=== PATIENT | male | born 1955 | race Caucasian/White ===

== ENCOUNTER 2022-05-02 18:58 | Inpatient (IN) | payer MEDICARE, OTHER ==
[~2022-05-02] VITALS: Ht 177.8 cm; Wt 93.0 kg
[2022-05-02 19:10] LABS: Calcium, Ionized (POC) 1.16 mmol/L (1.10-1.46); Chloride (POC) 107 mmol/L (98-108); Glucose (ISTAT POC) 162 mg/dL (70-99); Hemoglobin (POC) 16.7 g/dL (13.5-17.5); Sodium (POC) 141 mmol/L (135-148); Total CO2 (POC) 23 mmol/L (21-32)
[2022-05-02 19:13] LABS: pH Blood Venous 7.26 (7.34-7.37)
[2022-05-02 19:14] LABS: Base Excess Venous -3.9 mmol/L; Bicarbonate Venous 20.5 mmol/L (24.0-30.0); PCO2 Venous 52.2 mmHg (38-42)
[2022-05-02 19:33] LABS: Source, Urine Straight Cath
[2022-05-02 19:34] LABS: BASOPHILS ABSOLUTE AUTO 0.04 K/mm3 (0.00-0.23); BASOPHILS PERCENT AUTO 0 % (0-2); EOSINOPHILS PERCENT AUTO 0 % (0-6); Hematocrit 48.1 % (37.0-53.0); Hemoglobin 16.1 g/dL (13.5-17.5); IMMATURE GRAN ABSOLUTE AUTO 0.09 K/mm3 (0.00-0.10); IMMATURE GRAN PERCENT AUTO 1 % (0-1); LYMPHOCYTES ABSOLUTE AUTO 0.73 K/mm3 (0.84-5.20); LYMPHOCYTES PERCENT AUTO 5 % (21-46); MONOCYTES ABSOLUTE AUTO 0.86 K/mm3 (0.16-1.47); MONOCYTES PERCENT AUTO 5 % (4-13); Mean Corpuscular HGB 31.6 pg (26.0-34.0); Mean Corpuscular HGB Conc 33.5 g/dL (31.5-36.5); Mean Corpuscular Volume 95 fL (80-100); Mean Platelet Volume 9.2 fL (9.1-12.4); NEUTROPHILS ABSOLUTE AUTO 14.56 K/mm3 (1.96-9.15); NEUTROPHILS PERCENT AUTO 89 % (41-73); Platelet Count 266 K/mm3 (150-400); RDW Coefficient Variation 13.2 % (11.7-14.2); RDW Standard Deviation 45.9 fL (35.1-46.3); Red Blood Cell Count 5.09 M/mm3 (4.30-5.90); White Blood Cell Count 16.28 K/mm3 (4.00-11.30)
[2022-05-02 19:47] LABS: Appearance, Urine Clear (Clear); Bilirubin, Urine Neg (Neg); Blood, Urine Neg (Neg); Color, Urine Yellow (P-Yellow); Glucose Qualitative, Urine Neg (Neg); Ketones, Urine Neg (Neg); Leukocyte Esterase, Urine Neg (Neg); Nitrite, Urine Neg (Neg); Protein, Urine Neg (Neg); Specific Gravity, Urine 1.015 (1.003-1.022); Urobilinogen, Urine NORM (Normal)
[2022-05-02 19:56] LABS: Ethanol (Alcohol), Blood, Med <3 mg/dL; Magnesium, Blood 2.2 mg/dL (1.6-2.4)
[2022-05-02 19:57] LABS: Alanine Aminotransfer (ALT/SGP 27 U/L (12-78); Albumin, Blood 3.6 g/dL (3.4-5.0); Albumin/Globulin Ratio 0.9 (0.8-1.8); Alk Phos 74 U/L (50-136); Anion Gap 7 mmol/L (6-16); Aspartate Aminotrans (AST/SGOT 19 U/L (12-37); Bilirubin, Total 0.7 mg/dL (0.1-1.0); Blood Urea Nitrogen 19 mg/dL (8-24); Bun/Creatinine Ratio 17.9 (12.0-20.0); CO2, Blood 24 mmol/L (21-32); Calcium, Blood 8.7 mg/dL (8.5-10.1); Chloride, Blood 109 mmol/L (98-108); Creatinine, Blood 1.06 mg/dL (0.60-1.20); Globulin, Blood 3.8 g/dL (2.2-4.0); Glomerular Filtration Rate 54 (60-); Glucose, Blood 163 mg/dL (70-99); Potassium, Blood 3.9 mmol/L (3.5-5.5); Sodium, Blood 140 mmol/L (136-145); Total Protein, Blood 7.4 g/dL (6.4-8.2)
[2022-05-02 20:00] LABS: U Amphetamine Screen Not Detected; U Barbituate Screen Not Detected; U Benzodiazapine Screen Not Detected; U Buprenorphine Screen Not Detected; U Cannabinoids Screen Not Detected; U Cocaine Screen Not Detected; U Methadone Screen Not Detected; U Methamphetamine Screen Not Detected; U Opiates Screen Not Detected; U Oxycodone Screen Not Detected; U Phencyclidine Screen Not Detected; U Propoxyphene Screen Not Detected
[2022-05-02 20:22] LABS: International Normalized Ratio 1.08; Prothrombin Time Results 11.3 Sec (9.7-11.5)
[2022-05-02 21:30] LABS: Bicarbonate Venous 17.8 mmol/L (24.0-30.0); PCO2 Venous 49.7 mmHg (38-42); pH Blood Venous 7.21 (7.34-7.37)
[2022-05-02 21:31] LABS: Base Excess Venous -8.2 mmol/L
[2022-05-02 22:06] LABS: Influenza A, PCR NEGATIVE (NEGATIVE); Influenza B, PCR NEGATIVE (NEGATIVE); Resp Syncytial Virus, PCR NEGATIVE (NEGATIVE); SARS-Cov-2 (COVID-19) PCR, MMC NEGATIVE (NEGATIVE)
--- NOTE | 2022-05-02 22:30 | NUR ---
ARRIVAL TO ICU PT BROUGHT TO UNIT AT THIS TIME. HE IS INTUBATED, 7.0/26CM WITH VENT SETTINGS AC/VC 16/500/7/90%. HE IS RECEIVING PROPOFOL 40MCG/KG/MIN AND PRECEDEX 0.4MCG/KG/HR. PUPILS 2MM AND MINIMALLY RESPONSIVE TO LIGHT. UPPER EXTREMITIES MINIMALLY RESPONSIVE TO NAILBED PRESSURE WITH INTERNAL ROTATION. TOES POINT UP AND SLIGHTLY FAN. COUGH/GAG INTACT. LUNGS CLEAR THROUGHOUT, MORE DIMINISHED ON R SIDE. THICK DURHAM/YELLOW ETT SECRETIONS. NSR ON MONITOR WITH RATE 80S-90S. BP STABLE WITH MAP >65. STRONG PULSES. OGT CONNECTED TO LOW INT SUCTION WITH YELLOW BILE DRAINAGE. BOWEL TONES HYPOACTIVE. STILES PATENT AND DRAINING PALE YELLOW/CLEAR URINE TO GRAVITY. CORE TEMP 98.4. SKIN COOL TO TOUCH, FINGERS/TOES HAVE DUSKY APPEARANCE. SEE SHIFT ASSESSMENT.
[2022-05-02 22:47] LABS: Anti-Xa UFH, PHA Monitoring <0.10 IU/mL
[2022-05-03 00:32] LABS: Source, Urine Foley catheter
[2022-05-03 00:38] LABS: Bilirubin, Urine Neg (Neg); Blood, Urine 4+ (Neg); Glucose Qualitative, Urine 3+ (Neg); Ketones, Urine Neg (Neg); Leukocyte Esterase, Urine Neg (Neg); Nitrite, Urine Neg (Neg); Protein, Urine 2+ (Neg); Specific Gravity, Urine 1.015 (1.003-1.022); Urobilinogen, Urine NORM (Normal)
[2022-05-03 01:25] LABS: BASOPHILS ABSOLUTE AUTO 0.05 K/mm3 (0.00-0.23); BASOPHILS PERCENT AUTO 0 % (0-2); EOSINOPHILS ABSOLUTE AUTO 0.01 K/mm3 (0.00-0.68); EOSINOPHILS PERCENT AUTO 0 % (0-6); Hematocrit 41.2 % (37.0-53.0); Hemoglobin 13.6 g/dL (13.5-17.5); IMMATURE GRAN ABSOLUTE AUTO 0.08 K/mm3 (0.00-0.10); IMMATURE GRAN PERCENT AUTO 1 % (0-1); LYMPHOCYTES ABSOLUTE AUTO 0.85 K/mm3 (0.84-5.20); LYMPHOCYTES PERCENT AUTO 5 % (21-46); MONOCYTES ABSOLUTE AUTO 0.86 K/mm3 (0.16-1.47); MONOCYTES PERCENT AUTO 5 % (4-13); Mean Corpuscular HGB 31.6 pg (26.0-34.0); Mean Corpuscular Volume 96 fL (80-100); Mean Platelet Volume 9.1 fL (9.1-12.4); NEUTROPHILS ABSOLUTE AUTO 15.82 K/mm3 (1.96-9.15); NEUTROPHILS PERCENT AUTO 89 % (41-73); Platelet Count 229 K/mm3 (150-400); RDW Coefficient Variation 13.2 % (11.7-14.2); RDW Standard Deviation 47.1 fL (35.1-46.3); Red Blood Cell Count 4.31 M/mm3 (4.30-5.90); White Blood Cell Count 17.67 K/mm3 (4.00-11.30)
[2022-05-03 01:29] LABS: Base Excess Venous -10.8 mmol/L; PCO2 Venous 31.3 mmHg (38-42); pH Blood Venous 7.31 (7.34-7.37)
[2022-05-03 01:38] LABS: Appearance, Urine Clear (Clear); Color, Urine Yellow (P-Yellow)
[2022-05-03 01:41] LABS: Bacteria Not Seen /hpf; Squamous Epithelial Cells Rare /hpf (Few); White Blood Cells, Urine Not Seen /hpf (0-5)
[2022-05-03 01:56] LABS: Alanine Aminotransfer (ALT/SGP 19 U/L (12-78); Albumin, Blood 2.7 g/dL (3.4-5.0); Albumin/Globulin Ratio 0.8 (0.8-1.8); Alk Phos 56 U/L (50-136); Anion Gap 14 mmol/L (6-16); Aspartate Aminotrans (AST/SGOT 20 U/L (12-37); Bilirubin, Direct <0.1 mg/dL (0.0-0.3); Bilirubin, Indirect Unable to Calculate mg/dL (0.1-0.7); Bilirubin, Total 0.4 mg/dL (0.1-1.0); Blood Urea Nitrogen 16 mg/dL (8-24); CO2, Blood 17 mmol/L (21-32); Calcium, Blood 7.9 mg/dL (8.5-10.1); Chloride, Blood 112 mmol/L (98-108); Creatinine, Blood 1.07 mg/dL (0.60-1.20); Globulin, Blood 3.2 g/dL (2.2-4.0); Glomerular Filtration Rate 54 (60-); Glucose, Blood 192 mg/dL (70-99); Phosphorus, Blood 2.7 mg/dL (2.5-4.9); Potassium, Blood 3.3 mmol/L (3.5-5.5); Sodium, Blood 143 mmol/L (136-145); Total Protein, Blood 5.9 g/dL (6.4-8.2)
--- NOTE | 2022-05-03 06:18 | NUR ---
SHIFT SUMMARY PROPOFOL AND PRECEDEX OFF SINCE 399. LR INFUSING AT 100ML/HR. NEURO: COUGH/GAG INTACT. PUPILS 2MM. R PUPIL FIXED. L PUPIL SLUGGISH AND MINIMAL RESPONSE TO LIGHT. ABSENT CORNEAL REFLEX. WITH NAILBED PRESSURE OR STERNAL RUB, UPPER EXTREMITIES INTERNALLY ROTATE. FEET WITHDRAW AND TOES POINT UPWARD. RESP: REMAINS INTUBATED AND ON SPONT 5/5/50% SINCE 399. RR 12-24. TV 500S-800S. LUNGS CLEAR THROUGHOUT. THICK DURHAM/YELLOW ETT SECRETIONS. CARDIAC: SINUS RHTYHM ON MONITOR WITH RATE 80S. BP STABLE WITH MAP >65. STRONG RADIAL AND PEDAL PULSES. COLOR IMPROVING, FINGERS AND TOES LESS DUSKY. GI: OGT CONNECTED TO LOW INT SUCTION WITH THICK YELLOW BILE DRAINAGE. BOWEL TONES HYPOACTIVE, ABDOMEN SOFT. NO BM THIS SHIFT. : STILES PATENT AND DRAINING TO GRAVITY. URINE OUTPUT 350ML THIS SHIFT. TMAX 100.2. FAN ON AND ICE PACKS IN PLACE. BILAT SOFT WRIST RESTRAINTS REMOVED DUE TO LACK OF SPONTANEOUS MOVEMENT. BED IN LOWEST POSITION. WILL REPORT TO ONCOMING RN.
--- NOTE | 2022-05-03 11:47 | NUR ---
REASSESSMENT PT REMAINS INTUBATED, ON PRESSURE SUPPORT, NO SEDATION. PT HAS INTERNAL ROTATION OF ARMS TO IRRITATING STIMULI, SUCH WITH ORAL CARE AND TURNS. WEAK GAG PRESENT, COUGH WITH SUCTION. R EYE HAS NYSTAGMUS, NO PUPILLARY RESPONSE. L PUPIL IS PINPOINT WITH VERY SLUGGISH RESPONSE. LUNGS ARE CLEAR. SR, BP STABLE. OG CLAMPED FOR MED ADMINISTRATION. STILES WITH YELLOW URINE. PT'S SON CALLED AND WAS PROVIDED UPDATE. HE THINKS HE MIGHT BE ABLE TO GET TO THE HOSPITAL AROUND 1300. DISCUSSED CODE STATUS WITH HIM AND HE SAYS PT WOULD NOT WANT CPR. THIS INFORMATION RELAYED TO DR. COCHRAN.
--- NOTE | 2022-05-03 17:15 | NUR ---
SHIFT SUMMARY PT REMAINS INTUBATED, NO SEDATION, WITH ONLY RESPONSE TO STIMULI BEING INWARD ROTATION OF HIS ARMS. PUPILS REMAIN PINPOINT, L PUPIL WITH SLIGHT SLUGGISH RESPONSE. LUGNS ARE CLEAR. SCANT AMT OF THICK DURHAM SPUTUM THIS AFTERNOON. SR, BP STABLE. OG TO LIS. STILES WITH CL YELLOW URINE. PT'S SON CAME TO THE HOSPITAL TODAY AND SPOKE WITH DR. COCHRAN. HE'S GOING TO CONTACT HIS SISTER AND PT'S BROTHERS TO COME SEE PT, THEN LIKELYW ILL WITHDRAW CARE.
--- NOTE | 2022-05-03 19:00 | NUR ---
ASSUMPTION OF CARE PT RECEIVING HEPARIN 11 UNITS/KG/HR. PT REMAINS INTUBATED WITH VENT SETTINGS SPONT 8/5/35%. RR 16-30. TV 400S-700S. LUNGS ARE CLEAR, DIMINISHED IN BASES. THICK YELLOW ETT SECRETIONS. PUPILS PINPOINT, R PUPIL UNRESPONSIVE TO LIGHT. L PUPIL MINIMALLY RESPONSIVE. SCLERAL EDEMA. GAG/COUGH REFLEX INTACT. PT HAS DECEREBRATE POSTURING WTIH NOXIOUS STIMULI. SINUS RHTYHM ON MONITOR WITH RATE 60S-70S. SBP 130S. OGT TO LOW INT SUCTION WITH SMALL AMOUNT OF YELLOW AND RED DRAINAGE. BOWEL TONES HYPOACTIVE. STILES PATENT AND DRAINING TO GRAVITY. SEE SHIFT ASSESSMENT.
--- NOTE | 2022-05-04 05:26 | NUR ---
SHIFT SUMMARY PT RECEIVING HEPARIN 15 UNITS/KG/HR AND LR 100ML/HR. NEURO: WEAK GAG, COUGH WITH ETT SUCTIONING. PUPILS 1MM. NYSTAGMUS PRESENT IN R EYE, PUPIL FIXED. L PUPIL SLUGGISH AND MINIMALLY RESPONSIVE. SCLERAL EDEMA, EYES APPEAR YELLOW AND BLOODSHOT. CORNEAL REFLEX ABSENT. OCCASIONAL HEAD MOVEMENT SIDE TO SIDE WITH ORAL CARE. WITH NOXIOUS STIMULI PT STRAIGHTENS AND INTERNALLY ROTATES UPPER EXTREMITIES. EXTREMITIES MOSTLY RIGID. RESP: PT REMAINS ON PS 15/6/35%. RR 12-22. TV 400S-700S. LUNGS ARE CLEAR, DIMINISHED IN BASES. MODERATE AMOUNT OF THICK YELLOW/DURHAM ETT SECRETIONS. CARDIAC: SINUS JUDY ON MONITOR WITH RATE IN 50S, INCREASES TO 60S-70S DURING CARE. SBP 130S THROUGHOUT SHIFT. STRONG RADIAL AND PEDAL PULSES. GI: OGT CONNECTED TO LOW INT SUCTION. 100ML THICK YELLOW AND RED DRAINAGE. BOWEL TONES HYPOACTIVE. : STILES PATENT AND DRAINING RAJINDER URINE. 600ML URINE OUTPUT THIS SHIFT. TMAX 100.3. APPLIED ICE PACKS AND FAN. PT NOW AFEBRILE. LIGHTS DIMMED, MUSIC PLAYING AND BED IN LOWEST POSITION.
[2022-05-04 05:43] LABS: BASOPHILS ABSOLUTE AUTO 0.07 K/mm3 (0.00-0.23); BASOPHILS PERCENT AUTO 1 % (0-2); EOSINOPHILS ABSOLUTE AUTO 0.09 K/mm3 (0.00-0.68); EOSINOPHILS PERCENT AUTO 1 % (0-6); Hematocrit 39.2 % (37.0-53.0); Hemoglobin 13.2 g/dL (13.5-17.5); IMMATURE GRAN ABSOLUTE AUTO 0.06 K/mm3 (0.00-0.10); IMMATURE GRAN PERCENT AUTO 1 % (0-1); LYMPHOCYTES ABSOLUTE AUTO 1.77 K/mm3 (0.84-5.20); LYMPHOCYTES PERCENT AUTO 15 % (21-46); MONOCYTES ABSOLUTE AUTO 0.63 K/mm3 (0.16-1.47); MONOCYTES PERCENT AUTO 5 % (4-13); Mean Corpuscular HGB Conc 33.7 g/dL (31.5-36.5); Mean Corpuscular Volume 95 fL (80-100); Mean Platelet Volume 9.3 fL (9.1-12.4); NEUTROPHILS ABSOLUTE AUTO 9.27 K/mm3 (1.96-9.15); NEUTROPHILS PERCENT AUTO 78 % (41-73); Platelet Count 215 K/mm3 (150-400); RDW Coefficient Variation 13.6 % (11.7-14.2); Red Blood Cell Count 4.13 M/mm3 (4.30-5.90); White Blood Cell Count 11.89 K/mm3 (4.00-11.30)
[2022-05-04 06:07] LABS: Albumin, Blood 2.4 g/dL (3.4-5.0); Albumin/Globulin Ratio 0.7 (0.8-1.8); Bilirubin, Total 0.5 mg/dL (0.1-1.0); Globulin, Blood 3.4 g/dL (2.2-4.0); Potassium, Blood 4.1 mmol/L (3.5-5.5); Total Protein, Blood 5.8 g/dL (6.4-8.2)
--- NOTE | 2022-05-04 16:43 | NUR ---
SHIFT SUMMARY NO ACUTE CHANGES THIS SHIFT. PT REMAINS INTUBATED, NOT SEDATED. VENT SETTINGS REMAIN PRESSURE SUPPORT 15/6, FIO2 35%. PT WITH MODERATE THICK DURHAM SECRETIONS WITH ETT SUCTION. PT CONTINUES TO HAVE INTERNAL ROTATION OF SHOULDERS AND ARMS WITH ANY NOXIOUS STIMULATION. COUGH AND GAG REMAIN INTACT. PT WITHOUT SPONTANEOUS OR PURPOSEFUL MOVEMENTS. OGT REMAINS IN PLACE TO LIS WITH SMALL AMOUNT OF DARK RED OUTPUT NOTED. LR INFUSING AT 100 ML/HR THROUGH PIV. HEPARIN INFUSING AT 17 UNIT/KG/HR. STILES TEMP PROBE REMAINS IN PLACE WITH DARK YELLOW URINE OUTPUT NOTED. PT FAMILY UPDATED VIA PHONE THIS SHIFT. VITAL SIGNS STABLE. WILL CONTINUE TO MONITOR AND REPORT OFF TO ONCOMING RN.
--- NOTE | 2022-05-04 19:45 | NUR ---
PATIENT REMAINS INTUBATED WITH VENT ON SPONT 15/6 FIO2 30% SUCTIONING MOD AMT OF CLEAR SECRETIONS VIA ETT, AND LARGE AMT OF CLEAR SECRETIONS ORAL. WITH SLIGHT STIMULI PATIENT BECOMING VERY STIFF PULLING ARMS AND LEGS TIGHT INWARD, PUPILS 2 AND EQUIL NO REACTION SEEN TO LIGHT. HEPARIN DRIP PER PHARMACY. OG IN PLACE TO LIS, DRAINING RED/BROWN SECRETIONS.
--- NOTE | 2022-05-04 21:11 | NUR ---
SPOKE TO DOCTOR SAMMIE REGARDING SMALL AMT OF BROWN BLOOD TINGED DRAINAGE VIA OG. HEPARIN DRIP STOPPED AND LOVENOX LOW DOSE WILL START IN AM. OG CLAMPED. NO OTHER CHANGES AT THIS TIME
[2022-05-05 03:50] LABS: BASOPHILS ABSOLUTE AUTO 0.06 K/mm3 (0.00-0.23); BASOPHILS PERCENT AUTO 1 % (0-2); EOSINOPHILS PERCENT AUTO 1 % (0-6); Hemoglobin 12.1 g/dL (13.5-17.5); IMMATURE GRAN ABSOLUTE AUTO 0.04 K/mm3 (0.00-0.10); IMMATURE GRAN PERCENT AUTO 1 % (0-1); LYMPHOCYTES ABSOLUTE AUTO 1.37 K/mm3 (0.84-5.20); LYMPHOCYTES PERCENT AUTO 16 % (21-46); MONOCYTES ABSOLUTE AUTO 0.55 K/mm3 (0.16-1.47); MONOCYTES PERCENT AUTO 7 % (4-13); Mean Corpuscular HGB 31.2 pg (26.0-34.0); Mean Corpuscular HGB Conc 33.6 g/dL (31.5-36.5); Mean Corpuscular Volume 93 fL (80-100); Mean Platelet Volume 9.5 fL (9.1-12.4); NEUTROPHILS PERCENT AUTO 75 % (41-73); Platelet Count 229 K/mm3 (150-400); RDW Coefficient Variation 13.2 % (11.7-14.2); RDW Standard Deviation 44.9 fL (35.1-46.3); Red Blood Cell Count 3.88 M/mm3 (4.30-5.90); White Blood Cell Count 8.52 K/mm3 (4.00-11.30)
[2022-05-05 06:22] LABS: Bun/Creatinine Ratio 13.8 (12.0-20.0); Calcium, Blood 8.3 mg/dL (8.5-10.1); Creatinine, Blood 0.87 mg/dL (0.60-1.20); Potassium, Blood 3.7 mmol/L (3.5-5.5)
--- NOTE | 2022-05-05 06:32 | NUR ---
SUMMARY PATIENT REMAINS INTUBATED VENT CHANGED BY RT, SPONT / FIO2 30% CONTINUE TO SUCTION WHITE AND SOMETIMES DURHAM SPUTUM VIA ETT. CONTINUES TO HAVE LARGE AMT OF CLEAR ORAL SECRETIONS. OG REMAINS IN PLACE AND CLAMPED. PUPILS REMAIN 2 AND FIXED. SCLERAL EDEMA, GENERALIZED EDEMA 2 + IN EXTREMITIES. PATIENT CONTINUES TO POSTURE DURING ANY STIMULI, AT TIMES TRIGGERED WITH VERBAL STIMULI.
--- NOTE | 2022-05-05 07:00 | NUR ---
ASSUME CARE: I have assumed care of this patient.
--- NOTE | 2022-05-05 10:27 | NUR ---
[facility]: RN provided update to coordinator via telephone
--- NOTE | 2022-05-05 15:47 | NUR ---
Spoke to pt's daughter in law Babak, who is speaking for Anthony today. Babak reports they were able to come see pt last Thursday and meet with Dr. Hardin. Babak states Anthony, pt's son has said everything he needs to say to pt and is not planning to return to the hospital. Babak states pt's brothers are planning to visit pt on 05/07 and will decide at that point if they would like to be present for withdrawal of care. Either way, pt's son Anthony does wish for withdrawal of care once pt's brothers have visited on Thursday. He also requests a call to his phone for each step: When pt's brother's arrive, when they are finished visiting, when we begin comfort care, and when pt expires. Anthony is currently preferring his Babak handle the calls, so she may well be answering the phone for Anthony on thursday. I assured them this is a fine arrangement. Family has chosen [facility] for mortuary.
--- NOTE | 2022-05-05 18:43 | NUR ---
SHIFT SUMMARY: NEURO: pt unresponsive. left pupil fixed. right pupil 2mm and reactive. +cough/-gag/-occulocephalics. CARDIAC: sinus miguel. stable BPs RESPIRATORY: PS 12/5 30% GI/: no BM. 1800 mls UOP which was discussed with Dr Hardin. TF started today at 1400 SKIN: no new breakdown. PSYCH/SOCIAL: RN spoke with pt's [id number] and coordinated with palliative care
--- NOTE | 2022-05-05 20:59 | NUR ---
PATIENT REMAINS INTUBATED, VENT SPONT 12/6 FIO2 30% SUCTIONING LARGE AMT OF WHITE/CLEAR SPUTUM VIA ETT, AND COPIOUS AMT OF CLEAR ORAL SECRETIONS. PATIENT COUGHING AND BECOMING VERY STIFF WITH PULLING ARMS AND LEGS IN HAND HOLDING THEM STRAIGHT. PUPILS 2 AND EQUIL UNREACTIVE. SCLERAL EDEMA WITH MORE SWELLING SEEN TO RIGHT EYE, BOTH EYES BLOODSHOT, ORDER OBTAINED FOR [facility] OINT[facility]. OG REMAINS IN PLACE WITH PIVOT 1.5 @ 20 CC/HR GOAL RATE OF 50 CC/HR PLAN TO TITRATE UP ORDERED.
[2022-05-06 00:49] LABS: Vancomycin, Trough 9.3 ug/mL (5.0-10.0)
[2022-05-06 03:59] LABS: BASOPHILS ABSOLUTE AUTO 0.04 K/mm3 (0.00-0.23); BASOPHILS PERCENT AUTO 1 % (0-2); EOSINOPHILS ABSOLUTE AUTO 0.19 K/mm3 (0.00-0.68); EOSINOPHILS PERCENT AUTO 3 % (0-6); Hemoglobin 12.5 g/dL (13.5-17.5); IMMATURE GRAN ABSOLUTE AUTO 0.03 K/mm3 (0.00-0.10); IMMATURE GRAN PERCENT AUTO 0 % (0-1); LYMPHOCYTES ABSOLUTE AUTO 1.44 K/mm3 (0.84-5.20); LYMPHOCYTES PERCENT AUTO 21 % (21-46); MONOCYTES ABSOLUTE AUTO 0.66 K/mm3 (0.16-1.47); MONOCYTES PERCENT AUTO 9 % (4-13); Mean Corpuscular HGB 31.7 pg (26.0-34.0); Mean Corpuscular HGB Conc 34.7 g/dL (31.5-36.5); Mean Corpuscular Volume 91 fL (80-100); Mean Platelet Volume 9.5 fL (9.1-12.4); NEUTROPHILS ABSOLUTE AUTO 4.63 K/mm3 (1.96-9.15); NEUTROPHILS PERCENT AUTO 66 % (41-73); Platelet Count 255 K/mm3 (150-400); RDW Coefficient Variation 12.9 % (11.7-14.2); RDW Standard Deviation 43.3 fL (35.1-46.3); Red Blood Cell Count 3.94 M/mm3 (4.30-5.90); White Blood Cell Count 6.99 K/mm3 (4.00-11.30)
[2022-05-06 04:26] LABS: Albumin, Blood 2.3 g/dL (3.4-5.0); Anion Gap 6 mmol/L (6-16); Blood Urea Nitrogen 12 mg/dL (8-24); Bun/Creatinine Ratio 14.8 (12.0-20.0); CO2, Blood 23 mmol/L (21-32); Calcium, Blood 8.4 mg/dL (8.5-10.1); Chloride, Blood 111 mmol/L (98-108); Creatinine, Blood 0.81 mg/dL (0.60-1.20); Glomerular Filtration Rate 98 (60-); Glucose, Blood 117 mg/dL (70-99); Phosphorus, Blood 3.6 mg/dL (2.5-4.9); Potassium, Blood 3.5 mmol/L (3.5-5.5); Sodium, Blood 140 mmol/L (136-145)
--- NOTE | 2022-05-06 06:14 | NUR ---
SUMMARY PATIENT REMAINS INTUBATED ON SPONT 03/25 FIO2 30% CONTINUE TO SUCTION LARGE AMT OF CLEAR ORAL SECRETIONS. SUCTIONING WHITE TO CLEAR, OCCASIONALLY SMALL AMT OF DURHAM VIA ETT. PATIENT CONTINUES TO HAVE POSTURING WITH STIMULI. PUPILS REMAIN 2, AT TIMES LEFT PUPIL SHOWING SMALL AMT OF REACTION. OG REMAINS IN PLACE PIVOT 1.5 NOW AT GOAL RATE OF 50 CC/HR, WITH MIN RESIDUAL OBTAINED.
--- NOTE | 2022-05-06 08:00 | NUR ---
Assumed care for pt at 0700. Pt remians intubated, on Spontaneous pressure support at 30% fio2. LR gtt @ 50 ml/hr, tube feed is Pivot which is at the goal of 50 ml/hr w/ 30 ml water flushes q4hr. Rosas cath is in place.
--- NOTE | 2022-05-06 10:00 | NUR ---
Spoke w/ Vic w/ [facility], advised he would be driving to hospital for an initial on-site assessment.
--- NOTE | 2022-05-06 13:00 | NUR ---
Maulik w/ [facility] has arrived to assess pt. He advised to keep them updated regarding cardiac , if family decides to change pt status.
--- NOTE | 2022-05-06 18:53 | NUR ---
Pt remains intubated on pressure support / and 30% fio2. Started a new 20g IV in R AC after 20g in right hand came out while repositioning pt. Continues LR gtt @ 50 ml/hr. Urine output 1200 ml during day shift. Pivot tube feed is at goal of 50 ml/hr w/ 30 ml water flushes. Plan is for brothers to visit tomorrow to check on pt status.
--- NOTE | 2022-05-06 20:35 | NUR ---
ASSUMED CARE NOTE: ASSUMED CARE OF PT AT 1900. PT IS INTUBATED 7.0 ETT, 26 AT THE GUMS. VENT MODE SPONT PEEP 6, PS 12, FiO2 30% PT REMAINS ON NO SEDATION. ABNORMAL POSTURING PRESENT WITH NOXIOUS STIMULI. WEAK GAG REFLEX PRESENT. COUGH PRESENT WITH STIMULATION. PT HAS MODERATE AMOUNT OF ORAL SECRETIONS. PT IN SB-SR WITH HR BETWEEN 50-60'S. SBP 130-150'S. RADIAL PULSES +2, BILATERAL PEDAL PULSES FAINT. TUBE FEED RUNNING AT 50ML/HR PIVOT 1.5. STILES PATENT, DRAINING TO GRAVITY. CONTINUING WITH PLAN OF CARE.
[2022-05-07 00:33] LABS: Vancomycin, Trough 11.2 ug/mL (5.0-10.0)
[2022-05-07 03:52] LABS: Albumin, Blood 2.3 g/dL (3.4-5.0); Anion Gap 5 mmol/L (6-16); Blood Urea Nitrogen 12 mg/dL (8-24); Bun/Creatinine Ratio 15.3 (12.0-20.0); CO2, Blood 25 mmol/L (21-32); Calcium, Blood 8.1 mg/dL (8.5-10.1); Chloride, Blood 111 mmol/L (98-108); Creatinine, Blood 0.78 mg/dL (0.60-1.20); Glomerular Filtration Rate 100 (60-); Glucose, Blood 123 mg/dL (70-99); Phosphorus, Blood 3.4 mg/dL (2.5-4.9); Potassium, Blood 3.7 mmol/L (3.5-5.5); Sodium, Blood 141 mmol/L (136-145)
--- NOTE | 2022-05-07 06:25 | NUR ---
SHIFT SUMMARY: SEE PREVIOUS NOTES. PT REMAINS UNSEDATED, WEAK GAG REFLEX PRESENT. COUGH REFLEX PRESENT . PT CONTINUES TO HAVE ABNORMAL POSTURING WITH NOXIOUS STIMULI. PUPLIS ARE EQUAL AND SLUGGLISH RESPONSE TO LIGHT. PT REMAINS INTUBATED, VENT SETTINGS UNCHANGED. SpO2 REMAINED ABOVE 90% LARGE AMOUNTS OF THIN CLEAR ORAL SECRETIONS NOTED. MODERATE AMOUNT OF DURHAM FROTHY SECRETION NOTED VIA ETT SUCTION. PT HAS BEEN IN SB TO SR WITH HR BETWEEN 55-60'S, BLOOD PRESSURE STABLE. TUBE FEED RUNNING AT GOAL 50ML/HR WITH 30ML/HR Q4HR FLUSHES. PT HAD ONE BOWEL MOVEMENT THIS SHIFT. STILES PATENT, DRAINING TO GRAVITY, 1100ML OF UO NOTED. PT REPOSITIONED Q2HRS. WILL CONTINUE WITH PLAN OF CARE UNTIL REPORT IS GIVEN TO ONCOMING SHIFT.
--- NOTE | 2022-05-07 11:23 | NUR ---
Brothers are at bedside, Jose Raul dukes/ Palliative Care has been notified. Brothers advise they are agreeable to placing pt on Comfort Care.
--- NOTE | 2022-05-07 11:47 | NUR ---
PT BROTHERS ARRIVED EXPECTED, SPENT APPROX 15 MINUTES AT BEDSIDE AND VERBALIZED TO [facility] TO WITHDRAW CARE AND PLACE PT ON COMFORT CARE. TC MADE TO DAUGHTER IN LAW TO NOTIFY HER OF THIS UPDATE PREVIOUSLY DISCUSSED WITH PALLIATIVE CARE. PC WILL CALL DAUGHTER IN LAW WHEN PT PASSES PER HER REQUEST. HOME CHOSEN IS [facility]. CC ORDERS PLACED AND DR DEVI NOTIFIED.
--- NOTE | 2022-05-07 15:51 | NUR ---
Called report to [facility] for room 306. Advised pt was currently on room air and had been administered atropine drops recently. RN notified Elisabet dukes/ Palliative Care that pt room was being changed as well.
--- NOTE | 2022-05-07 16:50 | NUR ---
Pt being transferred to room 306, remains on comfort care. He appears comfortable at this time. No oxygen in place. Babak, daughter in law is aware. No changes needed to care plan at this time.
--- NOTE | 2022-05-07 18:37 | NUR ---
PT TRANSFERRED FROM ICU AT 1620 TODAY. NO FAMILY PRESENT. PT ONLY RESPONSIVE TO PAIN. ROXANOL AND ATROPINE ADMINISTERED TO PT THIS SHIFT.
--- NOTE | 2022-05-08 07:09 | NUR ---
Mr. Polanco is on comfort care following extubation yesterday in ICU. Hollie has a nasal-trumpet and remains on room air. He rested comfortable, was repositioned frequently during the shift on a Q2HR interval. Had x1 epissode of liquid stool. Medicated with comfort medication Raxonol, atropin and ativan as indicated. Right pupil pin-point abd non-reactive to light. left pupil +3 and sluggish in accomodation to light. Gag reflex intact and diminished, cellebrate posturing evident. Palliative involved in case.
--- NOTE | 2022-05-08 12:11 | NUR ---
Comfort care visit and update to pt's randy-in-law, Babak [phone]. RN had just repositioned and medicated pt for comfort. He is unresponsive to voice, touch or repositioning. He is not handling sublinqual Roxanol well, with wet, coughing episode noted by RN. Audible upper airway pooled secretions noted. RN to apply scopolomine patch after visit. T/C to Babak SUN. She was provided with an update on pt's progression with dying. Questions answered. Pt appears to be actively dying with slowing of resp rate to approx 6-8/min. No nonverbal indicators of pain, anxiety or distress noted. Arms are edematous isabella. Pt positioned with HOB elevated, turned to right at this time.
--- NOTE | 2022-05-08 16:12 | NUR ---
PT AT 1418. NASAL TRUMPET REMOVED. RAC AND LEFT FOREARM IV REMOVED. STILES TAKEN OUT. CALLED NURSING DRYWALL HANGER WHO CALLED THE DAUGHTER IN LAW TO INFORM HER OF PT PASSING. PALLIATIVE CARE CALLED. DR. DEVI NOTIFIED WELL CHARGE NURSE. PT EYES COVERED WITH ICE PACK. ISOLATION GOWN ON AND NEW ATTENDS PLACED ON PT. AWAITING ARRIVAL FROM [facility].
== END 2022-05-08 14:18 | DRG 64 ==
LOC: ER 18:58 → ICUW 22:45 → EDBD 22:45 → ICUE 22:45 → MEDS 05-07 16:47
PROVIDERS: Internal Medicine Critical Care Medicine; Pharmacist; Student in an Organized Health Care Education/Training Program; ADMIT Family Medicine
PROC: 5A1955Z Respiratory Ventilation, Greater than 96 Consecutive Hours (ICD-10-PCS; principal; 2022-05-02)
PROC: 0T9B70Z Drainage of Bladder with Drainage Device, Via Natural or Artificial Opening (ICD-10-PCS; 2022-05-02)
DX: I63.02 Cerebral infarction due to thrombosis of basilar artery (principal); A41.1 Sepsis due to other specified staphylococcus; I63.89 Other cerebral infarction; J69.0 Pneumonitis due to inhalation of food and vomit; R40.20 Unspecified coma; J96.02 Acute respiratory failure with hypercapnia; J96.01 Acute respiratory failure with hypoxia; G92.8 Other toxic encephalopathy; R65.20 Severe sepsis without septic shock; E87.29 Other acidosis; Z66 Do not resuscitate; Z51.5 Encounter for palliative care; F17.200 Nicotine dependence, unspecified, uncomplicated; Z20.822 Contact with and (suspected) exposure to COVID-19; F10.20 Alcohol dependence, uncomplicated; R73.9 Hyperglycemia, unspecified; I12.9 Hypertensive chronic kidney disease with stage 1 through stage 4 chronic kidney disease, or unspecified chronic kidney disease; N18.30 Chronic kidney disease, stage 3 unspecified; E83.51 Hypocalcemia; E87.6 Hypokalemia; E88.09 Other disorders of plasma-protein metabolism, not elsewhere classified; Z78.1 Physical restraint status
CPT/HCPCS: 0241U; 36415; 51702; 70450; 70496; 70498; 71045; 71260; 72125; 80047; 80048; 80053; 80069; 80202; 81001; 81003; 82248; 82330; 82803; 82947; 83605; 83735; 83880; 84100; 84443; 84484; 85014; 85025; 85379; 85520; 85610; 85730; 87040; 87070; 87077; 87186; 87205; 93005; 93010; 93306; 94002; 94003; 94644; 94664; 96365-59; 96366-59; 96367-59; 96375-59; 99291-25; A9270; C9113; G0480; J0360; J0696; J1170; J1644; J1650; J2060; J2270; J2543; J2704; J3010; J3370; J3411; J3480; J7030; J7050; J7120; Q9967